=== PATIENT | female | born 1950 | race Two or more races ===

== ENCOUNTER 2020-03-17 00:20 | Inpatient (IN) | payer MEDICARE, OTHER ==
[~2020-03-17] VITALS: Ht 152.4 cm; Wt 54.4 kg
--- NOTE | 2020-03-17 00:30 | NUR ---
PATIENT CAME TO ER BED 10 C/O NOT TAKING VITAMINS AT [facility]. PATIENT IS AAOX2. NO SOB. BREATHING EVENLY AND UNLABORED ON ROOM AIR. CONNECTED TO MONITOR.
--- NOTE | 2020-03-17 00:31 | NUR ---
PT MINE FROM [facility] C/O AGGRESSIVE BEHAVIOR TOWARDS STAFF AND FOR GEROPSYCH ADMISSION. PT RECEIVED IM 5MG HALDOL AND ATIVAN 1 MG @1500 PER REPORT. PT AAOX3,VSS,RESPIRATIONS EVEN AND UNLABORED ON RA W/ NAD NOTED. WILL CONTINUE TO MONITOR
[2020-03-17 00:36] LABS: BASOPHILS % (AUTO) 0.6 % (0.0-2.0); EOSINOPHILS % (AUTO) 1.8 % (0.0-6.0); HEMATOCRIT 34 % (33-45); HEMOGLOBIN 11.2 g/dL (11.5-14.8); LYMPHOCYTES # (AUTO) 2.4 /CMM (0.8-4.8); LYMPHOCYTES % (AUTO) 30.1 % (20.0-44.0); MEAN CORPUSCULAR HGB CONC 33 g/dl (31.0-36.0); MEAN CORPUSCULAR VOLUME 106 fL (82-100); MONOCYTES # (AUTO) 0.9 /CMM (0.1-1.30); MONOCYTES % (AUTO) 11.2 % (2.0-12.0); NEUTROPHILS # (AUTO) 4.5 /CMM (1.8-8.9); NEUTROPHILS % (AUTO) 56.3 % (43.0-81.0); PLATELET COUNT (AUTO) 364 /CMM (150-450); RED BLOOD CELL COUNT(AUTO) 3.17 MIL/uL (4.0-5.2); WHITE BLOOD COUNT (AUTO) 7.9 K/uL (4.3-11.0)
[2020-03-17 00:43] LABS: CARBON DIOXIDE 26 mmol/L (21-32); CHLORIDE 104 mmol/L (98-107); CREATININE 1.2 mg/dL (0.6-1.3); GLUCOSE 146 mg/dL (74-106); POTASSIUM 4.3 mmol/L (3.5-5.1); SODIUM SERUM 139 mmol/L (136-145); UREA NITROGEN, BLOOD 23 mg/dL (7-18)
--- NOTE | 2020-03-17 00:46 | NUR ---
URINE COLLECTED AND SENT TO LAB.
[2020-03-17 00:49] LABS: ALANINE AMINOTRANSFERASE 79 U/L (12-78); ALBUMIN 3.6 g/dL (3.4-5.0); ALCOHOL, BLOOD < 3 mg/dL (0-0); ALKALINE PHOSPHATASE 355 U/L (46-116); ASPARTATE AMINOTRANSFERASE 48 U/L (15-37); BILIRUBIN,DIRECT 0.1 mg/dL (0.0-0.2); BILIRUBIN,TOTAL 0.4 mg/dL (0.2-1.0); TOTAL PROTEIN, SERUM 8.6 g/dL (6.4-8.2)
[2020-03-17 00:50] LABS: ACETAMINOPHEN < 2 ug/ml (10-30)
[2020-03-17 00:50] LABS: APPEARANCE,URINE Clear (CLEAR); BILIRUBIN,URINE Negative (NEGATIVE); BLOOD, URINE Negative Ery/uL (NEGATIVE); COLOR,URINE Yellow (YELLOW); KETONES,URINE Trace (NEGATIVE); LEUKOCYTE ESTERASE ,URINE Negative (NEGATIVE); NITRITE, URINE Negative (NEGATIVE); PROTEIN,URINE Negative (NEGATIVE); UGLUCOSE Negative (NEGATIVE); UROBILINOGEN,URINE 0.2 EU/dL (0.2)
[2020-03-17 01:09] LABS: BACTERIA,URINE None seen /HPF (None Seen); MUCUS,URINE Few /LPF (None Seen); RBC,URINE 0-2 /HPF (0-2); SQUAMOUS EPITHELIAL CELL,UR Few /HPF (None Seen); WBC,URINE 0-2 /HPF (0-3)
--- NOTE | 2020-03-17 02:24 | NUR ---
CHRIS COWART AT BEDSIDE.
[2020-03-17 02:28] LABS: EOSINOPHILS % (MANUAL) 2 % (0-4); LYMPHOCYTES % (MANUAL) 24 % (16-48); MONOCYTES % (MANUAL) 12 % (0-11.0); NEUTROPHILS % (MANUAL) 62 (42-76)
--- NOTE | 2020-03-17 02:57 | NUR ---
BED ASSIGNMENT 216-B
--- NOTE | 2020-03-17 03:22 | NUR ---
Report given to theodore weinstein for mey.
--- NOTE | 2020-03-17 03:47 | NUR ---
PATIENT TAKEN UP TO ASSIGNED ROOM.
[2020-03-17] MEDS ORDERED: MAGNESIUM HYDROXIDE 30 ML UDC PO PRN (04:00)
[2020-03-17] MEDS ORDERED: LORAZEPAM 0.5 MG TABLET PO PRN (04:00)
[2020-03-17] MEDS ORDERED: ACETAMINOPHEN 325 MG TABLET PO PRN (04:00)
[2020-03-17] MEDS ORDERED: TEMAZEPAM 7.5 MG CAPSULE PO PRN (04:00)
[2020-03-17] MEDS ORDERED: BLOOD SUGAR DIAGNOSTIC 1 EACH STRIP IN ONE (04:00)
[2020-03-17] MEDS ORDERED: MIRT15TA PO (04:48)
[2020-03-17] MEDS ORDERED: LOXA50CA PO (04:48)
[2020-03-17] MEDS ORDERED: PANT40TA2 PO (04:48)
[2020-03-17] MEDS ORDERED: LEVO50TA8 PO (04:48)
[2020-03-17] MEDS ORDERED: QUET100T PO (04:48)
[2020-03-17] MEDS ORDERED: VALP250S22 PO (04:48)
[2020-03-17] MEDS ORDERED: BENZ1TAB7 PO (04:48)
[2020-03-17] MEDS ORDERED: RIVA1.5C13 PO (04:48)
--- NOTE | 2020-03-17 05:34 | NUR ---
GPS RN ADMITTING NOTE RECEIVED PT @9261, COMING FROM [facility]. AICHA CERDA IS A 69 YEAR OLD FEMALE WITH A PSYCHIATRIC DIAGNOSIS OF PSYCHOSIS, MEDICAL HISTORY OF DEMENTIA, TYPE II DIABETES, HYPERLIPIDEMIA, GERD, HYPOTHYROIDISM, MUSCLE WASTING AND ATROPHY, MAJOR DEPRESSIVE DISORDER, BIPOLAR, PARANOID, SCHIZOPHRENIA. PER REPORT PT WAS BEING DISRUPTIVE IN FACILITY AND NOT BEING COMPLIANT WITH MEDICATION, PT BECAME COMBATIVE WITH STAFF. UPON ASSESSMENT PT STATED "I DID NOT WANT TO TAKE MY VITAMINS BECAUSE I WAS GOING TO GIVE TO THE [facility]IL[employer] [facility], EVERY TIME I TAKE THEM MY BROTHER HAS TO HELP ME TAKE IT OUT". OT IS A/O X1-2 FORGETFUL, CONFUSED, FLAT AFFECT, ANXIOUS, GUARDED, SUSPICIOUS, PT WAS CALM, COOPERATIVE WITH STAFF. ALLOWED SKIN ASSESSMENT, PICTURES TAKEN IN CHART, NO WOUND CONSULT NEEDED AT THIS TIME. PT IS AMBULATORY WITH SOME ASSITANCE, WEARS DIAPERS BUT IS CONTINENT PT STATED. PT STATED SHE HEARS VOICES BUT THEY DO NOT COMMAND HER TO DO ANYTHING. PT ALSO STATES "I CAN NOT SLEEP BECAUSE MY SCHIZOPHRENIA". PT DENIES PAIN, NO DISTRESS NOTED, VITAL SIGNS STABLE, PT IS ON CARDIAC MECHANICAL SOFT DIET, CRUSH PILLS, NKA. PT DENIES SI/HI AT THIS TIME. PTS RIGHT HANDBOOK AND MEDICATION HANDBOOK GIVEN TO PT ALONG WITH DOCUMENTATION AND HOLD. DR. MALLORY AND DR. HARLEY ARE APART OF THE PATIENTS PLAN OF CARE. ENVIRONMENTAL CHECK WAS DONE, PT WAS SHOWN HOW TO USE CALL LIGHT, BED IN LOCKED AND LOWEST POSITION, BED ALARM ON. WILL CONTINUE TO MONITOR Q15 MIN FOR SAFETY AND BEHAVIOR.
[2020-03-17 06:40] VITALS: BP 153/96
--- NOTE | 2020-03-17 07:09 | NUR ---
GPS RN OPENING NOTES RECEIVED PT RESTING IN BED AT THIS TIME. AOX1-2, CONFUSED WITH PERIODS OF FORGETFULNESS. NO SOSB NOTED.NO S/S OF ANY ACUTE DISTRESS NOTED AT THIS TIME. NO C/O PAIN. RESPIRATIONS EVEN AND UNLABORED WITH EQUAL RISE AND FALL IN CHEST. PT DENIES SI/HI. PT REMAINS WITHDRAWN. ENCOURAGED TO VERBALIZE FEELINGS. SAFETY MAINTAIN AT ALL TIMES. BED IN LOWEST LOCKED POSITION, SIDE RAILS UPX2, CALL LIGHT WITHIN REACH. WILL CONTINUE TO MONITOR Q15M, PRN AND PER PROTOCOL FOR SAFETY AND BEHAVIOR.
[2020-03-17 08:00] VITALS: BP 148/91
--- NOTE | 2020-03-17 09:30 | NUR ---
DR PERALTA MADE AWARE OF PATIENT'S MEDICATION RECONCILIATION. NO NEW ORDERS, WILL CONTINUE TO MONITOR
--- NOTE | 2020-03-17 14:35 | NUR ---
PATIENT CONSULTED VIA TELEMEDICINE/HEALTH BY DR MALLORY. DR MALLORY REQUESTED PATIENT'S MEDICATION LIST, REQUESTED TO FOLLOW UP WITH PHARMACY FOR FORMULARY LOXAPINE AND TO HAVE JONATHON, THE LEAN MANUFACTURING ENGINEER CALL HIM WITH UPDATES ON WHAT PHARMACY SAYS.ORDERS READ BACK. JONATHON, LEAN MANUFACTURING ENGINEER MADE AWARE. SPOKE WITH NOLAN, THREAD MILLING MACHINE SET UP OPERATOR, PER NOLAN, THERE'S NO FORMULARY LOXAPINE AT THIS TIME, THE PHARMACY HAS LOXAPINE IN PILLS. ORDERS CARRIED OUT. WILL CONTINUE TO MONITOR
--- NOTE | 2020-03-17 15:05 | NUR ---
Facility Contact: LAWANDA contacted Saniya ([phone]), complaints coordinator of [facility], and confirmed that the pt can return to the facility.
--- NOTE | 2020-03-17 15:10 | NUR ---
Family Contact: SW called the pts brother, Yogesh ([phone]), and left a voicemail stating that the SW would like to discuss the pts discharge plan.
--- NOTE | 2020-03-17 15:40 | NUR ---
RECEIVED ORDERS FROM DR MALLORY, SEROQUEL 100MG QID, REMERON 15MG QHS, DEPAKOTE 250MG BID. ORDERS READ BACK. WILL CONTINUE TO MONITOR
--- NOTE | 2020-03-17 15:43 | NUR ---
Initial Discharge Plan: Pt currently resides at [facility] located at [address] [place] [address]. Per Saniya ([phone]) at the facility, pt can return. Per pt, she would like to return to the facility. LAWANDA will work with the pt and the MD regarding appropriate discharge planning. SW will form a safe and proper plan.
[2020-03-17 16:00] VITALS: BP 164/97
[2020-03-17] MEDS ORDERED: DIVALPROEX SODIUM 250 MG TABLET.DR PO SCH (17:00)
[2020-03-17] MEDS: PANTOPRAZOLE 40 MG TABLET.DR PO SCH (17:54)
[2020-03-17] MEDS: LEVOTHYROXINE SODIUM 50 MCG TABLET PO SCH (17:54)
[2020-03-17] MEDS: QUETIAPINE FUMARATE 100 MG TABLET PO SCH ×2 (17:54→20:44)
--- NOTE | 2020-03-17 19:05 | NUR ---
GPS RN CLOSING NOTES PT RESTING IN BED AT THIS TIME. PT REMAINED STABLE THROUGHOUT SHIFT. ALL CARE, NEEDS, TREATMENT AND MEDICATIONS ADMINISTERED ANTICIPATED PER ORDER. PT KEPT CLEAN AND DRY.SAFETY MAINTAIN AT ALL TIMES. BED IN LOWEST LOCKED POSITION, SIDE RAILS UPX2, CALL LIGHT WITHIN REACH. WILL CONTINUE TO MONITOR Q15M, PRN AND PER PROTOCOL FOR SAFETY AND BEHAVIOR Addendum: 03/17/20 at 1910 by SLIM FINNEY RN GPS RN CLOSING NOTES PT RESTING IN BED AT THIS TIME. PT REMAINED STABLE THROUGHOUT SHIFT. ALL CARE, NEEDS, TREATMENT AND MEDICATIONS ADMINISTERED ANTICIPATED PER ORDER. PT KEPT CLEAN AND DRY.SAFETY MAINTAIN AT ALL TIMES. BED IN LOWEST LOCKED POSITION, SIDE RAILS UPX2, CALL LIGHT WITHIN REACH. WILL ENDORSE TO CADET DECK NURSE FOR MADIHA
[2020-03-17 19:38] VITALS: BP 158/84
[2020-03-17 19:53] VITALS: BP 113/62
[2020-03-17] MEDS: MIRTAZAPINE 15 MG TABLET PO SCH (22:04)
[2020-03-17] MEDS: DIVALPROEX SODIUM 250 MG TABLET.DR PO SCH (22:43)
[2020-03-18] MEDS ORDERED: SITA50TA (02:29)
[2020-03-18] MEDS ORDERED: METF-440 (02:29)
[2020-03-18] MEDS: PANTOPRAZOLE 40 MG TABLET.DR PO SCH (07:44)
[2020-03-18] MEDS: LEVOTHYROXINE SODIUM 50 MCG TABLET PO SCH (07:44)
[2020-03-18 07:52] LABS: CREATININE 0.9 mg/dL (0.6-1.3)
[2020-03-18 08:00] VITALS: BP 143/93
[2020-03-18] MEDS: QUETIAPINE FUMARATE 100 MG TABLET PO SCH ×4 (09:04→20:37)
[2020-03-18] MEDS: DIVALPROEX SODIUM 250 MG TABLET.DR PO SCH ×3 (09:04→17:05)
[2020-03-18 16:00] VITALS: BP 141/72
[2020-03-18 20:10] VITALS: BP 124/70
[2020-03-18] MEDS: MIRTAZAPINE 15 MG TABLET PO SCH (21:42)
[2020-03-19] MEDS: PANTOPRAZOLE 40 MG TABLET.DR PO SCH (07:30)
[2020-03-19] MEDS: LEVOTHYROXINE SODIUM 50 MCG TABLET PO SCH (07:30)
[2020-03-19 08:00] VITALS: BP 156/91
[2020-03-19] MEDS: QUETIAPINE FUMARATE 100 MG TABLET PO SCH ×4 (08:58→21:18)
[2020-03-19] MEDS: DIVALPROEX SODIUM 250 MG TABLET.DR PO SCH ×3 (08:58→17:51)
[2020-03-19] MEDS ORDERED: SITAGLIPTIN PHOSPHATE 50 MG TABLET PO SCH (11:00)
[2020-03-19] MEDS: LINAGLIPTIN 5 MG TABLET PO SCH (11:47)
[2020-03-19] MEDS: METFORMIN 500 MG TABLET PO SCH ×2 (11:47→17:51)
[2020-03-19 16:00] VITALS: BP 129/77
[2020-03-19 19:58] VITALS: BP 132/56
[2020-03-19] MEDS: MIRTAZAPINE 15 MG TABLET PO SCH (21:17)
--- NOTE | 2020-03-20 00:25 | NUR ---
GPS-RN NOTE: INSOMNIA PATIENT C/O INABILITY TO SLEEP. ADMINISTERED RESTORIL 7.5MG PO ORDERED. WILL CONTINUE TO MONITOR.
[2020-03-20 08:00] VITALS: BP 135/69
[2020-03-20] MEDS: PANTOPRAZOLE 40 MG TABLET.DR PO SCH (08:35)
[2020-03-20] MEDS: LINAGLIPTIN 5 MG TABLET PO SCH (08:35)
[2020-03-20] MEDS: LEVOTHYROXINE SODIUM 50 MCG TABLET PO SCH (08:35)
[2020-03-20] MEDS: METFORMIN 500 MG TABLET PO SCH ×2 (08:35→17:03)
[2020-03-20] MEDS: QUETIAPINE FUMARATE 100 MG TABLET PO SCH ×4 (08:35→20:10)
[2020-03-20] MEDS: DIVALPROEX SODIUM 250 MG TABLET.DR PO SCH ×3 (08:35→17:03)
[2020-03-20 16:00] VITALS: BP 131/71
[2020-03-20 19:37] VITALS: BP 110/56
[2020-03-20] MEDS: MIRTAZAPINE 15 MG TABLET PO SCH (21:07)
[2020-03-21 08:00] VITALS: BP 160/77
[2020-03-21] MEDS: DIVALPROEX SODIUM 250 MG TABLET.DR PO SCH ×3 (09:15→17:05)
[2020-03-21] MEDS: QUETIAPINE FUMARATE 100 MG TABLET PO SCH ×4 (09:15→21:34)
[2020-03-21] MEDS: PANTOPRAZOLE 40 MG TABLET.DR PO SCH (09:15)
[2020-03-21] MEDS: LEVOTHYROXINE SODIUM 50 MCG TABLET PO SCH (09:15)
[2020-03-21] MEDS: METFORMIN 500 MG TABLET PO SCH ×2 (09:15→17:05)
[2020-03-21] MEDS: LINAGLIPTIN 5 MG TABLET PO SCH (09:15)
[2020-03-21] MEDS: MAG HYDROX/AL HYDROX/SIMETH 30 ML UDC PO PRN ×2 (09:36→19:43)
--- NOTE | 2020-03-21 09:36 | NUR ---
rn notes administered Maalox 30 ml po prn for stomachache.
[2020-03-21 16:00] VITALS: BP 129/73
--- NOTE | 2020-03-21 19:55 | NUR ---
RN NOTES: VERBALIZED SHE FEELS MILD ABDOMINAL DISCOMFORT AFTER DINNER AND ASKING FOR HER MAALOX, SHE SAID "ILL BE OK WHEN I TAKE IT", GIVEN PRN MAALOX.
[2020-03-21 20:00] VITALS: BP 112/60
[2020-03-21 20:24] VITALS: BP 112/60
[2020-03-21] MEDS: MIRTAZAPINE 15 MG TABLET PO SCH (22:02)
--- NOTE | 2020-03-22 03:02 | NUR ---
RN NOTES: COOPERATIVE AND MED COMPLIANT, AFTER SHE HAD MAALOX, SHE SLEEP WELL THE ENTIRE NIGHT,NO PAIN OR DISCOMFORT, NO RESPIRATORY DISTRESS NOTED.FALL,SAFETY AND ASPIRATION PRECAUTION OBSERVED.
--- NOTE | 2020-03-22 07:06 | NUR ---
RN NOTES: AWAKE, NO SIGN OF AGITATION IN THE NIGHT, NO SUICIDAL THOUGHTS OR PERIODS OF DEPRESSION, NO SIGN OF PARANOIA,KEPT ON CLOSE WATCH, FALL,SAFETY AND ASPIRATION PRECAUTION OBSERVED. NO PAIN OR DISCOMFORT,ENDORSED FOR CONTINUITY OF CARE.
[2020-03-22] MEDS: LINAGLIPTIN 5 MG TABLET PO SCH (07:50)
[2020-03-22] MEDS: LEVOTHYROXINE SODIUM 50 MCG TABLET PO SCH (07:50)
[2020-03-22] MEDS: QUETIAPINE FUMARATE 100 MG TABLET PO SCH ×4 (07:50→21:09)
[2020-03-22] MEDS: PANTOPRAZOLE 40 MG TABLET.DR PO SCH (07:50)
[2020-03-22] MEDS: METFORMIN 500 MG TABLET PO SCH ×2 (07:50→17:16)
[2020-03-22] MEDS: DIVALPROEX SODIUM 250 MG TABLET.DR PO SCH ×3 (07:50→17:16)
[2020-03-22 08:00] VITALS: BP 130/57
[2020-03-22 16:00] VITALS: BP 145/77
[2020-03-22 20:00] VITALS: BP 122/75
[2020-03-22] MEDS: MIRTAZAPINE 15 MG TABLET PO SCH (21:09)
[2020-03-23] MEDS: LINAGLIPTIN 5 MG TABLET PO SCH (07:48)
[2020-03-23] MEDS: METFORMIN 500 MG TABLET PO SCH ×2 (07:48→17:22)
[2020-03-23] MEDS: QUETIAPINE FUMARATE 100 MG TABLET PO SCH ×4 (07:48→21:19)
[2020-03-23] MEDS: DIVALPROEX SODIUM 250 MG TABLET.DR PO SCH ×3 (07:48→17:22)
[2020-03-23] MEDS: LEVOTHYROXINE SODIUM 50 MCG TABLET PO SCH (07:48)
[2020-03-23] MEDS: PANTOPRAZOLE 40 MG TABLET.DR PO SCH (07:48)
[2020-03-23 08:00] VITALS: BP 124/73
[2020-03-23 16:00] VITALS: BP 142/71
[2020-03-23 20:32] VITALS: BP 122/58
[2020-03-23] MEDS: MIRTAZAPINE 15 MG TABLET PO SCH (21:56)
--- NOTE | 2020-03-23 23:44 | NUR ---
RN Note:Patient refused skin reassessment and picture to be taken.
[2020-03-24] MEDS: LEVOTHYROXINE SODIUM 50 MCG TABLET PO SCH (07:30)
[2020-03-24] MEDS: PANTOPRAZOLE 40 MG TABLET.DR PO SCH (07:30)
[2020-03-24 08:00] VITALS: BP 119/69
[2020-03-24] MEDS: QUETIAPINE FUMARATE 100 MG TABLET PO SCH ×4 (09:25→21:34)
[2020-03-24] MEDS: DIVALPROEX SODIUM 250 MG TABLET.DR PO SCH ×3 (09:25→17:47)
[2020-03-24] MEDS: LINAGLIPTIN 5 MG TABLET PO SCH (09:25)
[2020-03-24] MEDS: METFORMIN 500 MG TABLET PO SCH ×2 (09:25→17:47)
[2020-03-24 16:00] VITALS: BP 134/77
[2020-03-24 20:31] VITALS: BP 135/70
[2020-03-24] MEDS: MIRTAZAPINE 15 MG TABLET PO SCH (21:34)
--- NOTE | 2020-03-25 06:29 | NUR ---
RN NOTES: PT. RESTING IN HER ROOM , NO ACUTE DISTRESS/ CHANGES NOTED, ALL NEEDS ANTICIPATED, WILL CONTINUITY WITH CARE.
[2020-03-25] MEDS ORDERED: Z GUARD REMEDY 2 OZ OINT TP PRN (06:30)
[2020-03-25 08:00] VITALS: BP 163/96
[2020-03-25] MEDS: LINAGLIPTIN 5 MG TABLET PO SCH (09:27)
[2020-03-25] MEDS: PANTOPRAZOLE 40 MG TABLET.DR PO SCH (09:27)
[2020-03-25] MEDS: QUETIAPINE FUMARATE 100 MG TABLET PO SCH ×4 (09:27→21:47)
[2020-03-25] MEDS: LEVOTHYROXINE SODIUM 50 MCG TABLET PO SCH (09:27)
[2020-03-25] MEDS: DIVALPROEX SODIUM 250 MG TABLET.DR PO SCH ×3 (09:27→17:26)
[2020-03-25] MEDS: METFORMIN 500 MG TABLET PO SCH ×2 (09:27→17:26)
[2020-03-25] MEDS: Z GUARD REMEDY 2 OZ OINT TP SCH (09:33)
[2020-03-25 16:00] VITALS: BP 136/81
--- NOTE | 2020-03-25 18:26 | NUR ---
QUIET ALL DAY.ISOLATIVE,STAYS IN .MED COMPLIANT.
[2020-03-25 20:08] VITALS: BP 140/75
[2020-03-25] MEDS: MIRTAZAPINE 15 MG TABLET PO SCH (21:46)
--- NOTE | 2020-03-26 06:54 | NUR ---
GPS RN NOTE PATIENT SLEPT WELL AT NIGHT. NO MADIHA NOTED. MED COMPLAINT AT NIGHT. WILL ENDORSE TO AM RN FOR CONTINUITY OF CARE.
[2020-03-26 08:00] VITALS: BP 149/80
[2020-03-26] MEDS: DIVALPROEX SODIUM 250 MG TABLET.DR PO SCH ×3 (10:19→17:47)
[2020-03-26] MEDS: PANTOPRAZOLE 40 MG TABLET.DR PO SCH (10:19)
[2020-03-26] MEDS: LINAGLIPTIN 5 MG TABLET PO SCH (10:19)
[2020-03-26] MEDS: LEVOTHYROXINE SODIUM 50 MCG TABLET PO SCH (10:20)
[2020-03-26] MEDS: Z GUARD REMEDY 2 OZ OINT TP SCH (10:20)
[2020-03-26] MEDS: METFORMIN 500 MG TABLET PO SCH ×2 (10:20→17:47)
[2020-03-26] MEDS: QUETIAPINE FUMARATE 100 MG TABLET PO SCH ×4 (10:20→21:05)
--- NOTE | 2020-03-26 12:29 | NUR ---
Family Contact: LAWANDA called the pts brother, Yogesh ([phone]), and informed him that the pt will return to [facility] once she is stable for discharge which is not at this time. LAWANDA stated that she will contact him once again when there is a discharge date.
[2020-03-26 16:00] VITALS: BP 118/65
--- NOTE | 2020-03-26 16:17 | NUR ---
[facility]
[2020-03-26 20:03] VITALS: BP 143/83
[2020-03-26] MEDS: MIRTAZAPINE 15 MG TABLET PO SCH (21:05)
[2020-03-27 08:00] VITALS: BP 120/68
[2020-03-27] MEDS: PANTOPRAZOLE 40 MG TABLET.DR PO SCH (08:18)
[2020-03-27] MEDS: DIVALPROEX SODIUM 250 MG TABLET.DR PO SCH ×3 (08:18→16:27)
[2020-03-27] MEDS: QUETIAPINE FUMARATE 100 MG TABLET PO SCH ×4 (08:18→21:19)
[2020-03-27] MEDS: METFORMIN 500 MG TABLET PO SCH ×2 (08:19→16:27)
[2020-03-27] MEDS: LEVOTHYROXINE SODIUM 50 MCG TABLET PO SCH (08:19)
[2020-03-27] MEDS: LINAGLIPTIN 5 MG TABLET PO SCH (08:19)
[2020-03-27] MEDS: Z GUARD REMEDY 2 OZ OINT TP SCH (09:17)
[2020-03-27 16:00] VITALS: BP 111/68
[2020-03-27 20:00] VITALS: BP 122/77
[2020-03-27 20:18] VITALS: BP 122/77
[2020-03-27] MEDS: MIRTAZAPINE 15 MG TABLET PO SCH (21:19)
--- NOTE | 2020-03-28 06:33 | NUR ---
GPS RN NOTE PATIENT SLEPT WELL AT NIGHT. NO CHANGES NOTED.
[2020-03-28 08:00] VITALS: BP 97/60
[2020-03-28] MEDS: DIVALPROEX SODIUM 250 MG TABLET.DR PO SCH ×2 (08:28→12:26)
[2020-03-28] MEDS: Z GUARD REMEDY 2 OZ OINT TP SCH (08:28)
[2020-03-28] MEDS: QUETIAPINE FUMARATE 100 MG TABLET PO SCH ×2 (08:28→12:26)
[2020-03-28] MEDS: METFORMIN 500 MG TABLET PO SCH (08:28)
[2020-03-28] MEDS: PANTOPRAZOLE 40 MG TABLET.DR PO SCH (08:28)
[2020-03-28] MEDS: LINAGLIPTIN 5 MG TABLET PO SCH (08:28)
[2020-03-28] MEDS: LEVOTHYROXINE SODIUM 50 MCG TABLET PO SCH (08:31)
--- NOTE | 2020-03-28 09:05 | NUR ---
Dr. Meek gave an order to D/C hold and D/C to [facility] and to follow up with psych and medical doctors and to continue same meds including prn.
--- NOTE | 2020-03-28 12:21 | NUR ---
Eliz Rodarte NP made aware of the discharge and to continue same meds including prn.
--- NOTE | 2020-03-28 12:38 | NUR ---
rn notes patient will be discharged to [facility], patient takes medication orally and is compliant, VSS, no SI at this time.
--- NOTE | 2020-03-28 13:16 | NUR ---
SNF Contact: LAWANDA faxed notes and a COVID result with attention to Saniya to the fax number: [phone].
--- NOTE | 2020-03-28 13:16 | NUR ---
Family Contact: SW called the pts brotherYogesh ([phone]), and left a message stating that the pt is discharging today.
--- NOTE | 2020-03-28 15:02 | NUR ---
Discharge Note: Pt was discharged to [facility] Address: [address], [place] [address] . Pt was transported via [facility] at 2pm. Pts brother, Emelyn ([phone]), was notified of the discharge. Upon discharge, the pt appears to be be in a euthymic mood and presents with a calm affect. Pt appeared to be alert and oriented x4 (time, place, self and situation). Pt denied both suicidal and homicidal ideation as well as auditory and visual hallucinations. Pt appeared ambulatory and well groomed. Pt will continue to be under the care of her psychiatrist, Dr. Meek, located at [address] [address], [address] [place] [address]; and railroad repairer, Dr Jerez, located at [address] [place] [id number]; . The multidisciplinary exit care form was done, printed, signed, and given to the patient.
== END 2020-03-28 13:45 | DRG 885 ==
LOC: ER 00:21 → GPS 03:00
PROVIDERS: ADMIT Psychiatry & Neurology Psychiatry; ATTEND Nurse Practitioner Acute Care
DX: F20.0 Paranoid schizophrenia (principal); N17.0 Acute kidney failure with tubular necrosis; F03.91 Unspecified dementia, unspecified severity, with behavioral disturbance; F29 Unspecified psychosis not due to a substance or known physiological condition; F41.9 Anxiety disorder, unspecified; E03.9 Hypothyroidism, unspecified; E11.9 Type 2 diabetes mellitus without complications; E78.5 Hyperlipidemia, unspecified; F31.9 Bipolar disorder, unspecified; K21.9 Gastro-esophageal reflux disease without esophagitis; M19.90 Unspecified osteoarthritis, unspecified site; R74.0 Nonspecific elevation of levels of transaminase and lactic acid dehydrogenase [LDH]; Z79.84 Long term (current) use of oral hypoglycemic drugs
CPT/HCPCS: 36415; 80048-TC; 80061-TC; 80076-TC; 80305; 81000-TC; 82565-TC; 82962-TC; 85025-TC; 87081-TC; 97116-TC; 97530-TC; G0480